=== PATIENT | female | born 1965 | race Two or more races ===

== ENCOUNTER 2018-12-09 15:34 | Inpatient (IN) | payer SELFPAY ==
[~2018-12-09] VITALS: Ht 157.5 cm; Wt 91.6 kg
[2018-12-09] MEDS ORDERED: SODIUM CHLORIDE 0.9% 1,000 ML IV ONE (16:13)
[2018-12-09] MEDS ORDERED: METOCLOPRAMIDE HCL 5MG/ml INJ 2ml VIAL IV ONE (16:15)
[2018-12-09] MEDS ORDERED: KETOROLAC TROMETH 30 MG/ML 1ML VIAL IV ONE (16:15)
[2018-12-09 16:24] LABS: Basophils # (auto) 0 uL; Basophils % (auto) 0.3 % (0.0-2.0); Eosinophils # (auto) 0.1 uL; Eosinophils % (auto) 1.2 % (0.0-7.0); Hematocrit 42.2 % (36.0-46.0); Hemoglobin 13.7 g/dL (12.2-16.2); Lymphocytes # (auto) 3.6 uL; Lymphocytes % (auto) 29.8 % (10.0-50.0); Mean Corpuscular Hemoglobin 30.5 pg (28.0-32.0); Mean Corpuscular Hgb Conc. 32.6 g/dL (32.0-36.0); Mean Corpuscular Volume 93.6 fL (80.0-100.0); Monocytes # (auto) 0.8 uL; Monocytes % (auto) 6.6 % (0.0-12.0); Neutrophils # (auto) 7.4 uL; Neutrophils % (auto) 62.1 % (37.0-80.0); Nucleated Red Blood Cells % 0.2 %; Platelet Count (auto) 226 10^3/uL (140-450); Red Cell Distribution Width 14.4 % (11.8-14.3); White Blood Cell 11.9 10^3/uL (4.4-10.8)
[2018-12-09 16:41] LABS: Albumin 2.9 g/dL (3.4-5.0); BUN/Creatinine Ratio 16.2; Calcium 8.6 mg/dL (8.5-10.1); Magnesium 2.1 mg/dL (1.6-2.6); Potassium 3.2 mmol/L (3.5-5.1)
[2018-12-09 16:43] LABS: Bilirubin, Total 0.7 mg/dL (0.2-1.0); Total Protein 7.3 g/dL (6.4-8.2)
[2018-12-09 17:13] LABS: Urine Bacteria NONE SEEN /hpf (None Seen); Urine Blood Negative /uL (Negative); Urine Specific Gravity 1.004 (1.001-1.035); Urine WBC <1 /hpf (0 - 5)
[2018-12-09] MEDS ORDERED: POTASSIUM EFFERVESENT TAB 25 MEQ PO ONE ×2 (17:15→20:30)
[2018-12-09] MEDS ORDERED: hydrALAZINE HCL 20 MG/ML VL IV PRN (20:15)
[2018-12-09] MEDS ORDERED: HYDROcodone-ACET 5/325MG TAB PO PRN (20:15)
[2018-12-09] MEDS ORDERED: NITROGLYCERIN 0.4 MG SL TAB SL PRN (20:15)
[2018-12-09] MEDS ORDERED: MORPHINE SULF INJ 2 MG/ML SYRINGE 1ML IV PRN ×2 (20:15)
[2018-12-09] MEDS ORDERED: DEXTROSE (50%) 50ML SYRG IV PRN (20:15)
[2018-12-09] MEDS ORDERED: ACETAMINOPHEN 500 MG TAB PO PRN (20:15)
[2018-12-09] MEDS ORDERED: ONDANSETRON HCL 4 MG/2 ML VIAL IV PRN (20:15)
--- NOTE | 2018-12-09 21:59 | NUR ---
Telemetry admit from [facility]OUT admitted to Telemetry unit. Patient oriented to ISAI TRISTAN, RN primary RN, unit, room, bed, and unit policies regarding patient care and visiting hours. Patient now on continuous telemetry monitoring, tele box # 21 and telemetry reading on arrival to unit is sinus rhythym. Patient weighed by bedscale and is slovenian speaking only. Family is at bedside to assist in translation. Patient encouraged to call if she needs anything. Bed left in low ishan position and call boyle is within reach.
[2018-12-09 22:00] VITALS: BP 113/66
[2018-12-09] MEDS: METOPROLOL TARTRATE 25 MG TAB PO SCH (22:00)
--- NOTE | 2018-12-09 22:50 | NUR ---
Unable to obtain medication reconciliation. Per patients family, patient takes one oral medication for DM, but is unaware of the name or dosage. Family asked to bring the information in tomorrow.
[2018-12-09] MEDS: ATORVASTATIN 20 MG TAB PO SCH (23:14)
[2018-12-09] MEDS: ACCU-CHEK COMFORT CURVE STRIP VI SCH (23:15)
[2018-12-09] MEDS: InsuLIN REG 1unit/0.01ml Soln (100units/ml) SC SCH (23:16)
[2018-12-10 05:43] VITALS: BP 101/48
[2018-12-10] MEDS: ACCU-CHEK COMFORT CURVE STRIP VI SCH ×4 (06:13→22:25)
[2018-12-10 06:22] LABS: Basophils # (auto) 0.1 uL; Eosinophils # (auto) 0.1 uL; Eosinophils % (auto) 1.7 % (0.0-7.0); Hematocrit 39.5 % (36.0-46.0); Hemoglobin 13.4 g/dL (12.2-16.2); Lymphocytes # (auto) 2.6 uL; Lymphocytes % (auto) 37.4 % (10.0-50.0); Mean Corpuscular Hemoglobin 31.5 pg (28.0-32.0); Mean Corpuscular Hgb Conc. 33.9 g/dL (32.0-36.0); Monocytes # (auto) 0.6 uL; Monocytes % (auto) 8.2 % (0.0-12.0); Neutrophils # (auto) 3.6 uL; Neutrophils % (auto) 51.7 % (37.0-80.0); Nucleated Red Blood Cells % 0.1 %; Platelet Count (auto) 211 10^3/uL (140-450); Red Blood Cells 4.24 10^6/uL (4.0-5.20); Red Cell Distribution Width 13.7 % (11.8-14.3); White Blood Cell 6.9 10^3/uL (4.4-10.8)
[2018-12-10] MEDS: InsuLIN REG 1unit/0.01ml Soln (100units/ml) SC SCH ×4 (06:25→22:39)
[2018-12-10 06:47] LABS: BUN/Creatinine Ratio 15.2; Calcium 7.9 mg/dL (8.5-10.1); Potassium 3.8 mmol/L (3.5-5.1)
--- NOTE | 2018-12-10 07:12 | NUR ---
Opening Shift Note Assumed care of patient, awake and alert. No S/S of distress/SOB or pain. Instructed on POC and to call for assist PRN, will continue to monitor for changes Q1hr and PRN.
[2018-12-10 09:00] VITALS: BP 106/64
[2018-12-10] MEDS: METOPROLOL TARTRATE 25 MG TAB PO SCH ×2 (10:00→22:24)
[2018-12-10] MEDS: LISINOPRIL 10 MG TAB PO SCH (10:00)
[2018-12-10] MEDS: ASPirin-EC 81 mg tab PO SCH (10:14)
--- NOTE | 2018-12-10 11:30 | NUR ---
Dr. Blakely aware of EKG. acknowledged baseline EKG. No new orders given.
[2018-12-10 13:00] VITALS: BP 108/71
[2018-12-10 17:00] VITALS: BP 106/58
--- NOTE | 2018-12-10 20:00 | NUR ---
OPENING SHIFT NOTE Patient is resting, with family at bedside. A&Ox4, on room air with no SOB. Patient reports 3/10 headache, but declines pain medication at this time. Patient instructed to call for assistance if needed. Bed left in low locked position and call light is within reach.
[2018-12-10 21:19] VITALS: BP 118/61
[2018-12-10] MEDS: ATORVASTATIN 20 MG TAB PO SCH (22:23)
[2018-12-11 05:41] VITALS: BP 103/56
[2018-12-11] MEDS: KETOROLAC TROMETH 30 MG/ML 1ML VIAL IV SCH ×2 (06:00)
--- NOTE | 2018-12-11 06:10 | NUR ---
Paged hospitalist regarding Toradol order. Awaiting call back.
--- NOTE | 2018-12-11 06:22 | NUR ---
Received call from Hospitalist, Lena Miranda. Informed her that Toradol 30mg is unavailable. No new orders at this time. Because patient has no c/o chest pain at this time, Advised to notify Dr. Urena during rounds and request new order for pain management.
[2018-12-11] MEDS: ACCU-CHEK COMFORT CURVE STRIP VI SCH ×3 (06:28→17:00)
[2018-12-11] MEDS: InsuLIN REG 1unit/0.01ml Soln (100units/ml) SC SCH ×3 (06:34→17:00)
[2018-12-11 09:38] VITALS: BP 102/67
[2018-12-11] MEDS: METOPROLOL TARTRATE 25 MG TAB PO SCH (10:00)
[2018-12-11] MEDS: LISINOPRIL 10 MG TAB PO SCH (10:00)
[2018-12-11] MEDS: ASPirin-EC 81 mg tab PO SCH (10:31)
[2018-12-11] MEDS: KETOROLAC TROMETH 60MG/2ML VIAL IV SCH ×2 (11:45→18:00)
[2018-12-11 13:32] VITALS: BP 110/71
--- NOTE | 2018-12-11 14:02 | NUR ---
Unable to update medication reconciliation report. Patient takes Insusym 5 mp PO BID for diabetes at home.
--- NOTE | 2018-12-11 16:00 | NUR ---
Spoke with Dr. Urena. aware of blood sugar levels. No new orders received for additional prescriptions and continue plan of care including discharge. Patient is to follow-up with primary doctor regarding issue.
[2018-12-11 17:09] VITALS: BP 124/73
--- NOTE | 2018-12-11 18:58 | NUR ---
Discharge instructions given as ordered. Encourage to follow up with PMD as instructed. All questions and concerns addressed. Patient verbalized understanding. Medication reconciliation form completed and copy given to patient. Patient and pharmacy dey home medications held in Pharmacy. IV removed with catheter intact, pressure dressing applied. Telemetry unit returned to [facility]. Patient taken to vehicle with all personal belongings, accompanied by family member. No distress noted at time of departure. Patient given [employer] [facility] [employer] [facility] provider Sierra Villanueva's business card. Patient states she has primary MD in [facility].
== END 2018-12-11 18:58 | disposition home or self-care (01) | DRG 206 ==
LOC: ER 15:44 → TELE 17:42 → TELE-WESTW 22:14
PROVIDERS: ADMIT Nurse Practitioner Acute Care; ATTEND Internal Medicine Pulmonary Disease
DX: M94.0 Chondrocostal junction syndrome [Tietze] (principal); E44.0 Moderate protein-calorie malnutrition; I24.9 Acute ischemic heart disease, unspecified; I10 Essential (primary) hypertension; E87.6 Hypokalemia; E66.9 Obesity, unspecified; M54.9 Dorsalgia, unspecified; R51 Headache; E11.9 Type 2 diabetes mellitus without complications; S29.011A Strain of muscle and tendon of front wall of thorax, initial encounter; X58.XXXA Exposure to other specified factors, initial encounter; Y93.89 Activity, other specified; Z68.36 Body mass index [BMI] 36.0-36.9, adult; Z88.0 Allergy status to penicillin; Z79.84 Long term (current) use of oral hypoglycemic drugs; Z83.3 Family history of diabetes mellitus; Y92.89 Other specified places as the place of occurrence of the external cause; Y99.8 Other external cause status
CPT/HCPCS: 36415; 70450; 71046; 80048; 80053; 80061; 81001; 82962; 83036; 83735; 83880; 84443; 84484; 85025; 86141; 93306; 96374; 96375; G0378; J1815; J1885